=== PATIENT | male | born 1950 ===

== ENCOUNTER 2017-11-24 09:04 | Observation (INO) | payer BC ==
--- NOTE | 2017-11-24 10:10 | ED PDOC ---
"Arrival/HPI - General Chief Complaint: Chest Pain Time Seen by Provider: 11/24/17 09:19 - History of Present Illness Narrative History of Present Illness (Text): 11/24/17 09:37 67 year old male, whose history includes minor stroke many years ago with no residual effects, presents to the Emergency department complaining of mid chest pain that began approximately 1 hour ago. Patient also complains of associated lightheadedness. Patient was driving someone else to the hospital when his symptoms began. Patient denies any fever, chills, shortness of breath, nausea, vomiting, diarrhea, urinary symptoms, back pain, neck pain, headache, or any other complaints. Time/Duration: 1 hour Symptom Onset: Sudden Symptom Course: Unchanged Context: Sitting Past Medical History - Provider Review Nursing Documentation Reviewed: Yes - Infectious Disease Hx of Infectious Diseases: None - Cardiac Hx Hypertension: Yes - Psychiatric Hx Substance Use: No - Surgical History Other/Comment: Exploritory ABD surgery 17 years ago. Family/Social History - Physician Review Nursing Documentation Reviewed: Yes Family/Social History: Unknown Family HX Smoking Status: Never Smoked Hx Alcohol Use: No Hx Substance Use: No Allergies/Home Meds Allergies/Adverse Reactions: Allergies No Known Allergies Allergy (Verified 11/24/17 09:16) Home Medications: Home Meds Medication Instructions Recorded Confirmed Unobtainable 11/24/17 11/24/17 Review of Systems - Review of Systems Constitutional: Normal Eyes: Normal ENT: Normal Respiratory: Normal Cardiovascular: Chest Pain Gastrointestinal: Normal Genitourinary Male: Normal Musculoskeletal: Normal Skin: Normal Neurological: Dizziness (lightheadedness) Endocrine: Normal Hemo/Lymphatic: Normal Psychiatric: Normal Physical Exam Vital Signs Reviewed: Yes Vital Signs Temp Pulse Resp BP Pulse Ox 11/24/17 11:21 54 L 18 126/64 96 11/24/17 09:05 98.5 F 59 L 17 128/67 99 Temperature: Afebrile Blood Pressure: Normal Pulse: Bradycardic Respiratory Rate: Normal Appearance: Positive for: Well-Appearing, Non-Toxic, Comfortable Pain Distress: None Mental Status: Positive for: Alert and Oriented X 3 - Systems Exam Head: Present: Atraumatic, Normocephalic Pupils: Present: PERRL Extroacular Muscles: Present: EOMI Conjunctiva: Present: Normal Mouth: Present: Moist Mucous Membranes Neck: Present: Normal Range of Motion Respiratory/Chest: Present: Clear to Auscultation, Good Air Exchange. No: Respiratory Distress, Accessory Muscle Use Cardiovascular: Present: Regular Rate and Rhythm, Normal S1, S2. No: Murmurs Abdomen: No: Tenderness, Distention, Peritoneal Signs Back: Present: Normal Inspection Upper Extremity: Present: Normal Inspection. No: Cyanosis, Edema Lower Extremity: Present: Normal Inspection. No: Edema Neurological: Present: GCS=15, CN II-XII Intact, Speech Normal Skin: Present: Warm, Dry, Normal Color. No: Rashes Psychiatric: Present: Alert, Oriented x 3, Normal Insight, Normal Concentration Medical Decision Making ED Course and Treatment: 11/24/17 10:11 You were treated in the ED today for hx of hypertension, cholesterol, chest pain for 1 hour prior to ED visit otherwise without any nausea/vomiting/headache/ difficulty breathing/abdomen pain/numbness/tingling/loss of limb function/pain with urination/recent travel/prior blood clots/prior cancer. You were otherwise breathing easily, smiling and talking easily, good strength/sensation, walking easily, clear lungs, no abdomen tenderness, no fever temp 98.5, decreased heart rate 59, stable breathing rate 17, excellent oxygen level 99% room air, normal blood pressure 128/67, you have blood tests no infection count 6, stable blood level hemoglobin 14/platelets 196, stable chemistry, heart blood test negative less than 0.01, radiology chest xray negative, ECG sinus bradycardia, aspirin, observation done in the ED with improvement. will admit for chest pain rule out. 11/24/17 11:53 chino Higgins who accepted for telemetry chest pain rule out. Reassessment Condition: Re-examined, Improved - Lab Interpretations Lab Results: 11/24/17 10:30 11/24/17 10:30 Lab Results 11/24/17 10:30: Sodium 140, Potassium 3.8, Chloride 103, Carbon Dioxide 27, Anion Gap 14, BUN 20, Creatinine 0.9, Est GFR ( Amer) > 60, Est GFR (Non- Af Amer) > 60, Random Glucose 105, Calcium 9.1, Magnesium 1.9, Total Bilirubin 0.8, AST 29, ALT 39, Alkaline Phosphatase 44, Lactate Dehydrogenase 555, Total Creatine Kinase 80, Troponin I 0.01, Total Protein 7.0, Albumin 4.0, Globulin 3.0, Albumin/Globulin Ratio 1.3 11/24/17 10:30: PT 11.4, INR 0.99, APTT 25.5 11/24/17 10:30: WBC 6.2, RBC 4.91, Hgb 14.3, Hct 42.1, MCV 85.7, MCH 29.1, MCHC 34.0, RDW 13.9, Plt Count 196, MPV 13.8 H, Gran % 58.2, Lymph % (Auto) 27.0, Posey % (Auto) 9.6 H, Eos % (Auto) 4.7, Baso % (Auto) 0.5, Gran # 3.63, Lymph # ( Auto) 1.7, Posey # (Auto) 0.6, Eos # (Auto) 0.3, Baso # (Auto) 0.03 I have reviewed the lab results: Yes - RAD Interpretation Radiology Orders: 11/24/17 10:31 CHEST PORTABLE [RAD] Stat Licensed Bondsman: ED Physician (cxr no acute) - EKG Interpretation Interpreted by ED Physician: Yes (sinus bradycardia) Type: 12 lead EKG - Medication Orders Current Medication Orders: Sodium Chloride (Sodium Chloride 0.9%) 1,000 mls @ 100 mls/hr IV .Q10H JAYDEN Last Admin: 11/24/17 10:39 Dose: 100 mls/hr eMAR Start Stop Document 11/24/17 10:39 EQ (Rec: 11/24/17 10:39 EQ [facility]) Intravenous Solution Start Date 11/24/17 Start Time 10:39 Discontinued Medications Aspirin (Aspirin) 325 mg PO STAT STA Stop: 11/24/17 10:31 Last Admin: 11/24/17 10:39 Dose: 325 mg - Scribe Statement The provider has reviewed the documentation as recorded by the Candie Todd Provider Scribe Attestation: All medical record entries made by the Candie were at my direction and personally dictated by me. I have reviewed the chart and agree that the record accurately reflects my personal performance of the history, physical exam, medical decision making, and the department course for this patient. I have also personally directed, reviewed, and agree with the discharge instructions and disposition. Disposition/Present on Arrival - Present on Arrival Any Indicators Present on Arrival: No History of DVT/PE: No History of Uncontrolled Diabetes: No Urinary Catheter: No History of Decub. Ulcer: No History Surgical Site Infection Following: None - Disposition Have Diagnosis and Disposition been Completed?: Yes Diagnosis: Chest pain Disposition: HOSPITALIZED Disposition Time: 11:53 Patient Plan: Admission, Telemetry Condition: IMPROVED Discharge Instructions (ExitCare): Chest Pain (ED) Forms: [employer] - Payments Anytime | Anywhere (Fijian)"
[2017-11-24] MEDS: Sodium Chloride 0.9% 1,000 ML IV SCH ×2 (10:39→19:40)
[2017-11-24 10:44] LABS: BASO # 0.03 K/mm3 (0.0-2.0); BASO % 0.5 % (0.0-3.0); EOS # 0.3 (0.0-0.7); EOS % 4.7 % (1.5-5.0); GRAN # 3.63 (1.4-6.5); GRAN % 58.2 % (50.0-68.0); HEMOGLOBIN 14.3 g/dL (14.0-18.0); LYMPH # 1.7 (1.2-3.4); MEAN CELL VOLUME 85.7 fl (80.0-105.0); MEAN CORPUSCULAR HEMOGLOBIN 29.1 pg (25.0-35.0); MEAN PLATELET VOLUME 13.8 fl (7.0-11.0); MONO # 0.6 (0.1-0.6); MONO % 9.6 % (1.0-6.0); RBC 4.91 10^6/uL (3.5-6.1); RED CELL DISTRIBUTION WIDTH 13.9 % (11.5-14.5); WHITE BLOOD COUNT 6.2 10^3/ul (4.5-11.0)
[2017-11-24 10:55] LABS: ALB/GLOB RATIO 1.3 (1.1-1.8); CALCIUM 9.1 mg/dL (8.4-10.5); GFR AFRICAN-AMERICAN > 60; GFR NON-AFRICAN AMERICAN > 60
[2017-11-24 10:57] LABS: PROTHROMBIN TIME 11.4 SECONDS (9.4-12.5)
[2017-11-24 10:58] LABS: ALT/SGPT 39 U/L (7-56); AST/SGOT 29 U/L (17-59); BLOOD UREA NITROGEN 20 mg/dL (7-21); INR 0.99 (0.93-1.08); PARTIAL THROMBOPLASTIN TIME 25.5 Seconds (25.1-36.5)
[2017-11-24 11:05] LABS: TROPONIN I 0.01 ng/mL
[2017-11-24 12:53] LABS: URINE BILIRUBIN NEGATIVE (NEGATIVE); URINE BLOOD NEGATIVE (NEGATIVE); URINE GLUCOSE (UA) NEGATIVE (NEGATIVE); URINE LEUKOCYTE ESTERASE NEGATIVE Leu/uL (NEGATIVE); URINE PROTEIN NEGATIVE mg/dL (<30 mg/dL); URINE UROBILINOGEN 0.2 E.U./dL (<1 E.U./dL)
[2017-11-24 12:54] LABS: URINE APPEARANCE CLEAR (CLEAR); URINE COLOR YELLOW (YELLOW)
--- NOTE | 2017-11-24 14:52 | RAD ---
HISTORY: 67yoM, with mid-sternal chest pain COMPARISON: No prior. FINDINGS: LUNGS: No active pulmonary disease. PLEURA: No significant pleural effusion identified, no pneumothorax apparent. CARDIOVASCULAR: Normal. OSSEOUS STRUCTURES: No significant abnormalities. VISUALIZED UPPER ABDOMEN: Normal. OTHER FINDINGS: None. IMPRESSION: No active disease.
[2017-11-24 16:36] VITALS: BMI 29.9
[2017-11-24] MEDS ORDERED: Pneumococcal 23-Valent Vaccine IM ONE (16:36)
[2017-11-24 19:35] LABS: TROPONIN I < 0.01 ng/mL
--- NOTE | 2017-11-24 22:12 | CARD ---
APPROVED REPORT EKG Measurement Heart [id number] <Conclusion> Sinus bradycardia Inferior infarct, age undetermined Abnormal ECG
[2017-11-25] MEDS: Sodium Chloride 0.9% 1,000 ML IV SCH (05:19)
[2017-11-25 07:21] LABS: HDL CHOLESTEROL 43 mg/dL (29-60)
[2017-11-25 07:32] LABS: LDL CHOLESTEROL 95 mg/dL (0-129)
[2017-11-25] MEDS ORDERED: Aminophylline 25 mg/ml Inj ONE (09:00)
--- NOTE | 2017-11-25 12:09 | HP ---
DATE OF EXAM: 11/24/2017 HISTORY OF PRESENT ILLNESS: This 67-year-old male was examined in the [facility] Emergency Room. This case was reviewed in detail with himself and physician, Dr. Jay Calabrese, medical physician. This patient presented for evaluation earlier this morning of mild chest pain. He told the emergency room physician it started approximately 1 hour prior to his presentation. He associated this with mild dizziness and it occurred while he was driving his car. The patient has a past medical history of mini stroke several years ago and also chronic hypertension. He states he is status post appendectomy and has chronic hypertension that is under the care of a local physician in [place]. When I asked the patient the names of his medication, he was unaware. On further questioning the patient, he said he was chest pain free while in the emergency room and denied any fever, chills, chest pain or shortness of breath at present. He denied any palpitation or knowledge of atherosclerotic heart disease or myocardial infarction in his past. REVIEW OF SYSTEMS: On head review, there was no headache or seizure. Eye review: No change in visual acuity. Ear review: No hearing loss. Throat review: No swallowing difficulty. Neck review: No stiffness. Cardiac review: As per HPI. Pulmonary: No cough. No hemoptysis. GI: No hematemesis. No melena. : No dysuria. Skin: No rash. Vascular: No claudication. Psychological: No knowledge of depression or anxiety. Neurological: Old mini stroke. SOCIAL HISTORY: The patient states he is a nondrinker, non IV drug misuser, nonsmoker. He is one of 18 children. His father of accidental and mother of complications of pneumonia. PHYSICAL EXAMINATION: GENERAL: Physical exam in the emergency room showed the patient was in a normal sinus rhythm. Alert and oriented. Denying any chest pain at present. VITAL SIGNS: Temperature was 98.5, respirations 17, pulse 54 and blood pressure 126/64 with a pulse ox of 99% on room air. HEENT: Head normocephalic, atraumatic. Eyes: No icterus. Ears: Clear. Throat: Noninjected. NECK: Supple. HEART: Regular S1, S2. No pathological rubs, murmurs or gallops. LUNGS: Clear to auscultation. ABDOMEN: Soft. EXTREMITIES: No edema. SKIN: Without rash. NEUROLOGICAL: Intact. PSYCHOLOGICAL: Alert. VASCULAR: Legs warm to touch. LABORATORY DATA: White count 6200, hemoglobin 14.3, hematocrit 42.1, platelets 196,000. PT/INR 0.99, PTT 25.5. Sodium 140, K 3.8, chloride 103, bicarb 27, BUN 20, creatinine 0.9, random blood sugar 105, calcium 9.1, magnesium 1.9, bilirubin 0.8, AST 29, ALT 39 and alk phos 44. CPK 80. Troponin 0.01. T4 was 8.2, normal. Urinalysis was unremarkable. Chest x-ray was reviewed. It showed no active pulmonary disease. There were no effusions, no pneumothorax and no infiltrates noted. EKG was reviewed. It showed a sinus bradycardia with nonspecific ST-T wave changes. IMPRESSION: A 67-year-old male with chest pain and history of chronic hypertension, on outpatient antihypertensive medication, names of which he is unaware, now admitted for rule out myocardial infarction versus unstable angina. My plans are to admit this patient to the cardiac unit. He will be given Ecotrin 81 mg p.o. daily and did receive Ecotrin 325 mg p.o. while in the emergency room. He is scheduled to receive 0.9 saline at 100 mL/hour and has an order for Tylenol 650 p.r.n. pain or temperature greater than 101. He is ordered to have a heart-healthy diet. I have requested an echocardiogram and a Lexiscan stress test for completeness sake. He is ordered to have a fasting lipid panel in the a.m. and based on the results of the above, additional testing and workup will be entertained. All of the above was discussed in detail with the patient at his bedside as well as Dr. Jay Calabrese, emergency room physician. All questions were answered. Kristie Higgins MD MTDD
--- NOTE | 2017-11-25 18:40 | CARD ---
APPROVED REPORT EXAM: Two-dimensional and M-mode echocardiogram with Doppler and color Doppler. INDICATION Chest Pain 2D DIMENSIONS Left Atrium (2D)3.8 (1.6-4.0cm)IVSd1.2 (0.7-1.1cm) LVDd4.5 (3.9-5.9cm)PWd1.2 (0.7-1.1cm) LVDs3.2 (2.5-4.0cm)FS (%) 28.5 % LVEF (%)55.1 (>50%) M-Mode DIMENSIONS Aortic Root2.50 (2.2-3.7cm)Aortic Cusp Exc.1.80 (1.5-2.0cm) Aortic Valve AoV Peak Srqahwyg494.0cm/Ema Peak GR.7mmHg Mitral Valve E/A ratio0.0 TDI E/Lateral E'0.0E/Medial E'0.0 Tricuspid Valve TR Peak [id number] [id number] Peak Gr.15mmHg [id number] LEFT VENTRICLE The left ventricle is normal size. There is normal left ventricular wall thickness. The left ventricular function is normal. The left ventricular ejection fraction is within the normal range. There is normal LV segmental wall motion. Transmitral Doppler flow pattern is Grade I-abnormal relaxation pattern. RIGHT VENTRICLE The right ventricle is normal size. There is normal right ventricular wall thickness. The right ventricular systolic function is normal. ATRIA The left atrium size is normal. The right atrium size is normal. AORTIC VALVE The aortic valve is moderately sclerotic and probably bicuspid. No aortic regurgitation is present. There is no aortic valvular stenosis. MITRAL VALVE The mitral valve is normal in structure. There is no mitral valve regurgitation noted. There is no mitral valve stenosis. TRICUSPID VALVE The tricuspid valve is normal in structure. There is no pulmonary hypertension. GREAT VESSELS The aortic root is normal in size. The IVC is normal in size and collapses >50% with inspiration. PERICARDIAL EFFUSION There is no pericardial effusion. <Conclusion> The left ventricle is normal size. There is normal left ventricular wall thickness. The left ventricular function is normal. The left ventricular ejection fraction is within the normal range. There is normal LV segmental wall motion. Transmitral Doppler flow pattern is Grade I-abnormal relaxation pattern. The aortic valve is moderately sclerotic and probably bicuspid.
--- NOTE | 2017-11-25 19:44 | CARD ---
APPROVED REPORT Protocol: LEXISCAN Test Type: Lexiscan Sestamibi Stress Test Attending Physician: Dr. Patrica Leo Referring Physician: Dr. Kristie Higgins Test Indications: Chest Pain Height:5 ft 8 in Weight:197lbs Medications: Aspirin Medical History: 67 y/o male. Hx of chest pain,hypertension,high cholesterol, TIA. Target HR: 155 bpm Resting ECG: Sinus Bradycardia 41 per minute. Resting Heart Rate: 46 bpm Resting Blood Pressure: 130/80mmHg Submaximum (85%): 132 bpm PROCEDURE Pharmacologic stress testing was performed using 0.4mg per 5ml of regadenoson given intravenously over 7-10 seconds. POST EXERCISE Reason for Termination: Protocol completed Target HR: No Max HR: 47 bpm 50% of Maximum Predicted HR: 155 bpm Exercise duration: 00:30 min:sec, 0 Stage Exercise capacity: 1.0METs Max Blood Pressure: 130/80mmHg Blood Pressure response to exercise: normal resting BP - appropriate response Heart Rate response to exercise: appropriate Chest Pain: Yes, Hailey Pressure like Mid Chest Pain. Angina index: 0 Arrhythmia: Yes, Sinus Bradycardia at rest. ST Change: No, none Deviation: 0 mm INTERPRETATION Stress EKG Conclusion: IV LEXISCAN NUCLEAR STRESS TEST DURING WHICH PATIENT FELT PRESSURE LIKE MID CHEST PAIN. NO ST-T CHANGES SEEN. NUCLEAR SCAN REPORT PENDING. Signed by Patrica Leo Electronically Approved: 11/25/2017 10:37:22 EXAM: Myocardial Perfusion REST/STRESS Stress Test Type: Pharmacologic Imaging Protocol Rest Spect myocardial perfusion imaging was performed in supine position 35 minutes following the injection of 10.3 mCi of Tc-99 Myoview. At peak stress, the patient was injected intravenously with 30.9mCi of Tc-99 tetrofosmin after an infusion time of 0 minutes and 10 seconds. Gated Stress Spect was performed 65 minutes after intravenous Tc-99 Myoview injection. The images were gated to evaluate regional wall motion and calculate ventricular ejection fraction.Images were reconstructed using backfilter projection method in short horizontal and verticle long axis. Spect slices were generated. LV Perfusion The quality of the study is good. The left ventricle is normal in size. The right ventricle is unremarkable. The lung uptake is within normal limits. The distribution of tracer reveals normal uptake pattern throughout the LV myocardium on the stress study. The rest myocardial perfusion study shows no significant change. Wall Motion Wall motion study shows good contractility of the left ventricle. LVEF = 51%. Conclusion 1. Normal SPECT myocardial perfusion study. 2. Normal gated wall motion of the left ventricle.
[2017-11-26 00:36] VITALS: RESP 18
[2017-11-26] MEDS: Sodium Chloride 0.9% 1,000 ML IV SCH (05:05)
[2017-11-26 06:47] VITALS: BP 139/85; TEMP 97.8; O2SAT 99
--- NOTE | 2017-11-26 07:57 | PN ---
DATE: 11/25/2017 SUBJECTIVE: This 67-year-old male was examined on the cardiac carr. His case was reviewed in detail with nurse, Anjali Vaughn, registered nurse. The patient is undergoing cardiac testing for admission complaints of chest pain in the setting of chronic hypertension and substernal chest discomfort. The patient at present is in a normal sinus rhythm on the shelter monitor. He denies any fever, chills, palpitation or current shortness of breath. PHYSICAL EXAMINATION: GENERAL: He is alert, oriented and in a normal sinus rhythm. VITAL SIGNS: Temperature is 97.9, respirations 20, pulse 61 and blood pressure 138/87. Pulse ox 97% on room air. HEENT: Head normocephalic, atraumatic. Eyes, no icterus. Ears, clear. Throat, noninjected. NECK: Supple. HEART: Regular S1, S2. No pathological rubs, murmurs or gallops. LUNGS: Clear. ABDOMEN: Soft. EXTREMITIES: No edema. SKIN: Without rash. NEUROLOGICAL: Intact. PSYCHOLOGICAL: Alert and oriented x3. VASCULAR: Legs warm to touch. DATA: White count 6200, hemoglobin 14.3, hematocrit 42.1, platelets 196,000. PT/INR 0.99, PTT 25.5. Sodium 140, potassium 3.8, chloride 103, bicarb 27, BUN 20, creatinine 0.9, random blood sugar 105, calcium 9.1. Magnesium 1.9. Bilirubin 0.8, AST 29, ALT 39, alkaline phosphatase 44. CPK#1 80 with a troponin of 0.01. CPK #2 60 with a troponin less than 0.01. T4 normal at 8.2. Cholesterol 164, triglycerides 83, LDL 95 and HDL 43. Urinalysis was unremarkable. Urine culture shows no growth. IMPRESSION: This is a 67-year-old male who was admitted with chest pain; history of chronic hypertension, now undergoing cardiac workup including echocardiography and a thallium stress test; based on the results, the patient will either be discharged or further workup will be entertained. He will be prescribed his home medication including Cozaar 50 mg p.o. daily. Ecotrin 81 mg p.o. daily, hydrochlorothiazide 12.5 mg p.o. daily and Norvasc 5 mg p.o. daily. Greater than 35 minutes was spent in the care management, review of labs, orders, x-rays. This case was reviewed in detail with the patient and nurse, Anjali Vaughn, registered nurse. Kristie Higgins MD MTDCaitlin
[2017-11-26 11:49] VITALS: PULSE 48
--- NOTE | 2017-11-26 17:22 | DS ---
DATE OF EXAM: 11/26/2017 FINAL DIAGNOSES: Atypical chest pain, hypertension, hyperlipidemia, history of benign prostate hypertrophy. DISPOSITION: Home. The patient was advised to follow up with his PMD, Dr. Margarito Szymanski, medical doctor in [place] within the next 72 hours. The patient was given copies of his 2-D echocardiogram and thallium stress test for his PMD's records and review. The results of the testings were discussed in detail with the patient with his nurse, Brina Scott present for the discussion. MEDICATIONS: Discharge meds will be to continue Tribenzor 5-12.5-20 mg p.o. at bedtime. He continues on Dexilant 60 mg p.o. daily, Lipitor 20 mg p.o. daily and Flomax 0.4 mg p.o. daily. SUMMARY: This 67-year-old male presented to [facility] with chest pain and dizziness while driving his car and was admitted to rule out myocardial infarction. He underwent negative cardiac isoenzyme testing. A 2-D echocardiogram was reviewed in detail with the patient. He was given a copy of this report. He is aware that he has a moderately sclerotic aortic valve and a probable bicuspid aortic valve as well. His 2-D echocardiogram showed normal left ventricular size, wall thickness, function and ejection fraction. Stress thallium test was negative for atherosclerotic heart disease and the patient was advised to follow up the issues of his aortic valve with his PMD and he was explained the importance of excellent blood pressure, cholesterol control as well as diet, exercise and monitoring of this finding with serial 2-D echocardiography. At the time of discharge, vital signs were temperature 97.8, respirations 18, pulse 48 and blood pressure 139/85 with a pulse ox of 99% on room air. The patient was independent in ambulation. His white count was 6200, hemoglobin 14.3, hematocrit 42.1, platelets 196,000. Sodium 140, K 3.8, chloride 103, bicarb 27, BUN 20, creatinine 0.9, random blood sugar 105. All liver function testing was normal including bilirubin 0.8, AST 29, ALT 39 and alk phos 44. Troponins were less than 0.01 x2. Cholesterol 164, triglycerides 83, LDL 95 and HDL 43, T4 was normal at 8.2. The patient was discharged to home and advised to follow up with his PMD within 72 hours and also to present directly to the closest emergency room for any change in signs and symptoms. Greater than 35 minutes was spent in the care and management, review of labs, meds, orders and his echocardiography and stress test results of which he was given a copy. Kristie Higgins MD MTDD
== END 2017-11-26 12:50 | disposition home or self-care (01) ==
LOC: ED 09:04 → ERH 11:54 → 2RNO 13:04
PROVIDERS: ADMIT Internal Medicine; ATTEND Internal Medicine
DX: R07.89 Other chest pain (principal); N40.0 Benign prostatic hyperplasia without lower urinary tract symptoms; I10 Essential (primary) hypertension; E78.5 Hyperlipidemia, unspecified; Z86.73 Personal history of transient ischemic attack (TIA), and cerebral infarction without residual deficits
CPT/HCPCS: 36415; 71045; 78452; 80053; 80061; 81003; 82550; 83615; 83735; 84436; 84484; 85025; 85610; 85730; 87086; 93005; 93017; 93306; 99285; A9502; G0378; J7030